=== PATIENT | female | born 1965 | race Caucasian/White ===

== ENCOUNTER 2019-01-06 10:40 | Emergency (ER) | payer OTHER ==
[~2019-01-06] VITALS: Ht 157.5 cm; Wt 55.8 kg
[2019-01-06 10:54] VITALS: Ht 157.5 cm; Wt 55.8 kg
[2019-01-06 12:10] VITALS: BP 102/68
== END 2019-01-06 12:10 | disposition home or self-care (01) ==
LOC: ED 10:40
DX: N39.0 Urinary tract infection, site not specified (principal); R11.0 Nausea; R50.9 Fever, unspecified; M79.10 Myalgia, unspecified site
CPT/HCPCS: J0696; J0780; J1885; Q0092